=== PATIENT | female | born 1960 | race Caucasian/White ===

== ENCOUNTER 2016-09-23 11:19 | Day surgery (SDC) | payer BC ==
[~2016-09-23] VITALS: Ht 157.5 cm; Wt 122.0 kg
[~2016-09-23 11:19] MED LIST: ADVAIR 250/501 DISK IH; ADVIL200 MG PO; ALBUTEROL SULF8.5 GM IH; AMLODIPINE BESY10 MG PO; ANTIBIOTICS PO; AZITHROMYCIN250 MG1 PO; Advair 500/50 Diskus IH; CONZIP100 MG PO; CYCLOBENZAPRINE10 MG PO; DUONEB 2.5-0.5 M3 ML AEROSOL; HYDROCHLOROTH12.5 M3 PO; LASIX40 MG PO; LEVAQUIN500 MG PO; Levaquin PO; MAALOX ADVANCE1 EACH PO; MELOXICAM15 MG PO; MOTRIN800 MG PO; Norvasc PO; PERCOCET 5/31 TABLET PO; PREDNISONE10 MG PO; PREDNISONE50 MG PO; PROAIR HFA8.5 GM IH; ROBITUSSIN AC,T10 ML PO; TYLENOL ARTHRI650 M2 PO; Ultram PO
== END 2016-09-23 14:04 | disposition home or self-care (01) ==
LOC: PAIN 11:19 → SDC 14:30 → PAIN 14:30
DX: M47.816 Spondylosis without myelopathy or radiculopathy, lumbar region (principal); F41.9 Anxiety disorder, unspecified; G89.29 Other chronic pain; M79.1 Myalgia; Z95.828 Presence of other vascular implants and grafts; Z68.43 Body mass index [BMI] 50.0-59.9, adult
CPT/HCPCS: J1030; J2250; J3010; S0020

== ENCOUNTER 2017-03-03 11:03 | Day surgery (SDC) | payer BC ==
[~2017-03-03] VITALS: Ht 156.2 cm; Wt 131.5 kg
[~2017-03-03 11:03] MED LIST changes: +NORVASC5 MG PO; +VITAMIN D32000 UNI1 PO
[2017-03-08] MEDS ORDERED: OXYCODONE-ACET1 EACH PO (16:45)
[2017-03-08] MEDS ORDERED: DUONEB 2.5-0.5 M3 ML AEROSOL (16:46)
[2017-03-08] MEDS ORDERED: ROBAXIN750 MG PO (16:47)
[2017-03-08] MEDS ORDERED: MOBIC15 MG PO (16:49)
== END 2017-03-03 13:45 | disposition home or self-care (01) ==
LOC: PAIN 11:03 → SDC 12:45 → PAIN 13:45
DX: M47.816 Spondylosis without myelopathy or radiculopathy, lumbar region (principal); M54.5 Low back pain; G89.29 Other chronic pain; M51.36 Other intervertebral disc degeneration, lumbar region; M79.1 Myalgia; I10 Essential (primary) hypertension; G47.30 Sleep apnea, unspecified; J44.9 Chronic obstructive pulmonary disease, unspecified; Z86.73 Personal history of transient ischemic attack (TIA), and cerebral infarction without residual deficits; Z79.891 Long term (current) use of opiate analgesic
CPT/HCPCS: J1030; J2250; J3010; S0020

== ENCOUNTER 2017-03-10 11:13 | Day surgery (SDC) | payer BC ==
[~2017-03-10] VITALS: Ht 156.2 cm; Wt 131.5 kg
[~2017-03-10 11:13] MED LIST changes: +MOBIC15 MG PO; +OXYCODONE-ACET1 EACH PO; +ROBAXIN750 MG PO
== END 2017-03-10 14:40 | disposition home or self-care (01) ==
LOC: PAIN 11:13 → SDC 13:00 → PAIN 14:40
DX: M47.816 Spondylosis without myelopathy or radiculopathy, lumbar region (principal); M54.5 Low back pain; G89.29 Other chronic pain; M51.36 Other intervertebral disc degeneration, lumbar region; G47.30 Sleep apnea, unspecified; I10 Essential (primary) hypertension; J44.9 Chronic obstructive pulmonary disease, unspecified; Z79.891 Long term (current) use of opiate analgesic; K21.9 Gastro-esophageal reflux disease without esophagitis; Z86.73 Personal history of transient ischemic attack (TIA), and cerebral infarction without residual deficits
CPT/HCPCS: J1030; J2250; J3010; S0020

== ENCOUNTER 2018-02-21 09:19 | Day surgery (SDC) | payer BC ==
[~2018-02-21] VITALS: Ht 156.2 cm; Wt 131.5 kg
== END 2018-02-21 11:13 | disposition home or self-care (01) ==
LOC: PAIN 09:19 → SDC 09:30 → PAIN 09:30
DX: M47.816 Spondylosis without myelopathy or radiculopathy, lumbar region (principal); M51.26 Other intervertebral disc displacement, lumbar region; M79.1 Myalgia; M53.3 Sacrococcygeal disorders, not elsewhere classified; M48.061 Spinal stenosis, lumbar region without neurogenic claudication; E66.01 Morbid (severe) obesity due to excess calories; Z68.43 Body mass index [BMI] 50.0-59.9, adult; Z79.891 Long term (current) use of opiate analgesic
CPT/HCPCS: J1030; J2250; J3010; S0020

== ENCOUNTER 2018-03-02 08:34 | Day surgery (SDC) | payer BC ==
[~2018-03-02] VITALS: Ht 156.2 cm; Wt 131.1 kg
== END 2018-03-02 09:55 | disposition home or self-care (01) ==
LOC: PAIN 08:34 → SDC 09:00 → PAIN 09:00
DX: M47.816 Spondylosis without myelopathy or radiculopathy, lumbar region (principal); M51.36 Other intervertebral disc degeneration, lumbar region; M48.061 Spinal stenosis, lumbar region without neurogenic claudication; E66.01 Morbid (severe) obesity due to excess calories; Z68.43 Body mass index [BMI] 50.0-59.9, adult; G89.29 Other chronic pain; M79.1 Myalgia; M53.3 Sacrococcygeal disorders, not elsewhere classified; G47.30 Sleep apnea, unspecified; Z79.891 Long term (current) use of opiate analgesic
CPT/HCPCS: J1030; J2250; J3010; S0020